=== PATIENT | male | born 1995 | race American Indian/Alaskan Native ===

== ENCOUNTER 2019-06-08 11:12 | Emergency (ER) | payer OTHER ==
[2019-06-08 12:09] VITALS: BP 107/75
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
[2019-06-08] MEDS ORDERED: CYCLOBENZAPRINE 10 MG TAB PO ONE (13:23)
[2019-06-08] MEDS ORDERED: IBUPROFEN 800 MG TAB PO ONE (13:23)
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
== END 2019-06-08 13:47 | disposition home or self-care (01) ==
LOC: ED 11:12
DX: S00.511A Abrasion of lip, initial encounter (principal); M79.18 Myalgia, other site; F12.10 Cannabis abuse, uncomplicated; Z79.1 Long term (current) use of non-steroidal anti-inflammatories (NSAID); V49.49XA Driver injured in collision with other motor vehicles in traffic accident, initial encounter; Y93.89 Activity, other specified; Y92.89 Other specified places as the place of occurrence of the external cause; Y99.8 Other external cause status
CPT/HCPCS: 72100